=== PATIENT | male | born 1955 | race Caucasian/White ===

== ENCOUNTER 2023-03-01 13:11 | Emergency (ER) | payer MEDICARE, MEDICAID ==
[2023-03-01 13:35] VITALS: BP 131/81; PULSE 71
== END 2023-03-01 14:15 | disposition home or self-care (01) ==
LOC: SUPCPDRO 13:11 → VM.ED 13:11
DX: K59.00 Constipation, unspecified (principal); I10 Essential (primary) hypertension; E66.9 Obesity, unspecified; Z68.25 Body mass index [BMI] 25.0-25.9, adult; Z88.8 Allergy status to other drugs, medicaments and biological substances; Z72.0 Tobacco use
CPT/HCPCS: 74019; 99283